=== PATIENT | female | born 1985 | race Caucasian/White ===

== ENCOUNTER 2018-05-17 20:38 | Emergency (ER) | payer OTHER ==
[~2018-05-17] VITALS: Ht 175.3 cm; Wt 70.9 kg
[2018-05-17 20:40] VITALS: Ht 175.3 cm; Wt 70.9 kg
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
[2018-05-17] MEDS ORDERED: IBUP-1542 PO (22:02)
[2018-05-17 22:10] VITALS: BP 121/77; PULSE 78; RESP 20
== END 2018-05-17 22:10 ==
LOC: E/R 20:38
DX: S00.83XA Contusion of other part of head, initial encounter (principal); S16.1XXA Strain of muscle, fascia and tendon at neck level, initial encounter; Y04.0XXA Assault by unarmed brawl or fight, initial encounter
CPT/HCPCS: 70486